=== PATIENT | female | born 1975 | race Caucasian/White ===

== ENCOUNTER 2016-10-27 00:12 | Emergency (ER) | payer MEDICAID ==
[2016-10-27 00:22] VITALS: BP 107/66; PULSE 66; RESP 16; TEMP 98.1; O2SAT 96
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
[2016-10-27] MEDS ORDERED: HYDROCODONE/APAP 5/325 TAB PO ONE (00:39)
[2016-10-27] MEDS ORDERED: ONDANSETRON DISINTEGRATING 4 MG TAB PO ONE (00:40)
[2016-10-27] MEDS ORDERED: HYDROCOD/APAP 5/325 PREPACK#6 BTL TAKEHOME ONE ×2 (01:16→01:19)
== END 2016-10-27 01:28 | disposition home or self-care (01) ==
DX: S52.501A Unspecified fracture of the lower end of right radius, initial encounter for closed fracture (principal); V28.0XXA Motorcycle driver injured in noncollision transport accident in nontraffic accident, initial encounter; Y92.89 Other specified places as the place of occurrence of the external cause; Y99.8 Other external cause status; Y93.55 Activity, bike riding
CPT/HCPCS: A4565

== ENCOUNTER → 2017-04-04 | Outpatient (CLI) | payer MEDICAID | LOC: FIMAGING 07:08 | PROVIDERS: ATTEND Specialist | DX: S52.501G Unspecified fracture of the lower end of right radius, subsequent encounter for closed fracture with delayed healing (principal); S63.511A Sprain of carpal joint of right wrist, initial encounter; S63.591A Other specified sprain of right wrist, initial encounter; R60.0 Localized edema ==